=== PATIENT | female | born 1935 | race Caucasian/White ===

== ENCOUNTER 2025-01-11 14:45 | Inpatient (IN) | payer MEDICARE, SELFPAY ==
[2025-01-11 16:05] VITALS: BP 145/87; PULSE 99; RESP 14; TEMP 37; O2SAT 95; BMI 30.7
[2025-01-11 18:00] VITALS: PULSE 98; RESP 16; O2SAT 96
[2025-01-11] MEDS: Magnesium Citrate 300 ML PO (18:14)
--- NOTE | 2025-01-11 20:08 | HP.PCM_ITS ---
HPI - General General Date of Admission: 01/11/25 Date of Service: 01/11/25 Chief Complaint: Here for rehabilitation. HPI Narrative TITI CABRERA, is a 89 F who presents with followin01/05/[address] [facility] with fall, left hip pain. X-ray showed left hip fracture, Ortho ordered MRI left hip confirmed left hip fracture. Walks with cane at baseline, tripped on curb, fell on left side. Morphine given, Zofran given. CT head negative, CT cervical spine negative. 01/05/2025 PT/OT, consult Orthopedics, pain control for left hip fracture. DVT prophylaxis. 01/07/2025 Hyponatremia. 01/07/2025 Dr. Sun performed left hip nailing. 01/08/2025 No acute events overnight. Hyponatremia improving, sodium 125 to 130. 01/08/2025 Mild left hip pain. WBAT, PT/OT, Pain control. Lovenox 30mg sc daily x 14 days DVT prophylaxis. Needs rehab at discharge. 01/09/2025 UTI treated with Keflex. 01/11/2025 Admit to TCU with debility, here for rehabilitation, strengthening, prior to discharge home with . [facility] Medical History (Updated 01/11/25 @ 20:[address] Tarik Quezada MD) Irritable bowel Restless legs High cholesterol Cancer Hypothyroidism Chronic pain Osteoporosis GERD (gastroesophageal reflux disease) Non-smoker Hypertension Migraines Home Medications ?Medication ?Instructions ?Recorded ?Last Taken ?Type acetaminophen 500 mg tablet 1,000 mg PO Q8H PRN PRN fe kelsey or 01/11/25 Unknown History pain aluminum-mag hydroxide-simethicone 30 ml PO Q2H PRN up set stomach 01/11/25 Unknown History 200 mg-200 mg-20 mg/5 mL oral susp ascorbic acid (vitamin C) 500 mg 500 mg PO BID iron ab sorption 01/11/25 Unknown History tablet (C-500) atorvastatin 10 mg tablet 10 mg PO DAILY cholesterol 1 03/13/24 Unknown History balsalazide 750 mg capsule 2,250 mg PO DAILY ulcerativ e 01/11/25 Unknown History colitis cholecalciferol (vitamin D3) 50 50 mcg PO DAILY bone 1 03/13/24 Unknown History mcg (2,000 unit) capsule cyclobenzaprine 10 mg tablet 10 mg PO BID PRN spasms 1 03/13/24 Unknown History enoxaparin 30 mg/0.3 mL 30 mg subcut Q24H clot preve ntion 01/11/25 Unknown History subcutaneous syringe (Lovenox) ferrous sulfate 325 mg (65 mg 325 mg PO DAILY anemia 1 03/13/24 Unknown History iron) tablet (Feosol) hydrocodone-acetaminophen 5-325mg 0.5 - 1 tab PO QHS p ain 01/11/25 Unknown History 5mg-325mg levothyroxine 25 mcg tablet 25 mcg PO DAILY hypothyroi dism 01/11/25 Unknown History lisinopril 20 mg tablet 20 mg PO DAILY BP 01/11/25 U nknown History omeprazole 40 mg capsule,delayed 40 mg PO DAILY acid r eflux 01/11/25 Unknown History release oxybutynin chloride 5 mg tablet 5 mg PO TID PRN bladde r 01/11/25 Unknown History oxycodone 5 mg capsule 5 mg PO Q4H PRN pain 5 Unknown History polyethylene glycol 3350 17 17 g PO DAILY bowels 01/11 Unknown History gram/dose oral powder (Miralax) sennosides 8.6 mg tablet (Senokot) 17.2 mg PO QHS cheryl ls 01/11/25 Unknown History tramadol 50 mg tablet 50 mg PO Q6H PRN pain (scale 01/11/25 Unknown History score4-5) Allergy/AdvReac Type Severity Reaction Status Date / Time Seasonal Allergies: Uncoded Allergy congestion Verified 01/11/25 15:45 Family History (Updated 01/11/25 @ 20:[address] Tarik Quezada MD) Mother Hypertension Maternal Grandmother Uterine cancer Surgical History (Updated 01/11/25 @ 20:[address] Tarik Quezada MD) History of tonsillectomy History of dilation and curettage History of malignant neoplasm of rectum History of back surgery History of appendectomy Social History (Updated 01/11/25 @ 20:[address] Tarik Quezada MD) household members: spouse Smoking Status: Never smoker alcohol intake: never substance use type: does not use ROS Constitutional Constitutional: Denies chills, fever(s) or weight gain ENT HEENT: Denies headache(s), nasal congestion or nasal discharge Cardiovascular Cardiovascular: Denies chest pain or palpitations Respiratory/Chest Respiratory/Chest: Denies cough, excessive phlegm production or shortness of breath with exertion Gastrointestinal Gastrointestinal: Denies abdominal pain, nausea or vomiting Genitourinary Genitourinary: Denies dysuria Musculoskeletal Musculoskeletal: Denies joint pain or joint swelling Integumentary Integumentary: Denies rash or wounds Neurologic Neurologic: Denies focal weakness, numbness or tingling Psychiatric Psychiatric: Denies anxiety, auditory hallucinations, depression, homicidal ideation or suicidal ideation Vital Signs Vital Signs Vital Signs: 01/11/25 16:05 01/11/25 18:00 Temperature 98.6 F Temperature Source Temporal Pulse Rate 99 98 Pulse Rhythm Regular Pulse Strength Normal (2+) Respiratory Rate 14 16 Respiratory Effort Normal Non-Labored Respiratory Depth Normal Respiratory Pattern Normal Blood Pressure 145/87 H Blood Pressure Mean 106 Blood Pressure Source Monitor Blood Pressure Position Semi-Fowlers Blood Pressure Location Right Arm Pulse Ox 95 96 Oxygen Delivery Method Room Air Room Air Weight Weight: 78.744 kg Body Mass Index (BMI) 30.7 Physical Exam Const alert General Appearance: cooperative HEENT normocephalic Eyes PERRL and EOMs intact bilaterally Neck supple, no JVD and no carotid bruits Resp normal respiratory effort, normal air movement and clear to auscultation bilaterally Cardio regular rate and regular rhythm GI normal to inspection, nondistended, normoactive bowel sounds, non-tender and non-distended Extremity normal capillary refill General Extremity: Negative for edema Skin no rashes or lesions noted General Skin Exam: no breakdown Psych affect normal Appearance: appropriate Assessment & Plan Assessment/Plan (1) Debility: (2) Closed left hip fracture: (3) Hyponatremia: (4) Urinary tract infection: (5) Essential (primary) hypertension: (6) Vitamin D deficiency: (7) Hyperlipidemia, unspecified: (8) Ulcerative colitis: (9) Osteoarthritis: (10) Hypothyroidism: (11) GERD (gastroesophageal reflux disease): (12) Overactive bladder: PLAN: Plan 89 year old female with below past medical history hospitalized for left hip fracture, underwent left hip nailing 01/07/[address] Sun, postoperative course complicated by hyponatremia, urinary tract infection, admitted to TCU with debility, here for rehabilitation, strengthening, prior to discharge home with . * Debility - PT/OT. * Pain - Tylenol 1000mg q8 prn, [place] 1/2 to 1 tablet qhs, Tramadol 50mg q6 prn, Oxycodone 5mg to 10mg q4 prn. * Bowel - Miralax 17gm daily, senna/colace 2 tablets bid, Magnesium citrate 300mL daily prn. * Adult immunization - Administer pneumonia vaccine, covid vaccine, flu vaccine as appropriate. * DVT prophylaxis - Lovenox 30mg sc q24 thru 01/23/2025. * Vitamin C deficiency - Vitamin C 500mg bid. * Ulceractive colitis - Balsalazide 2250mg daily. * Vitamin D deficiency - D3 50mcg daily. * Muscle spasm - Flexeril 10mg bid prn thru 01/18/2025. * Iron deficiency anemia - Ferrous sulfate 325mg thru 01/17/2025. * Hemorrhoids - Anusol 25mg pr bid prn. * Hypothyroidism - Levothyroxine 25mcg daily. * Hypertension - Lisinopril 20mg daily. * Indigestion - Mylanta 30ml daily prn. * Skin irritation - Calmoseptine topical bid. * Overactive bladder - Oxybutynin 5mg tid prn. * GERD - Pantoprazole 40mg bid.
[2025-01-11] MEDS: HYDROcodone Bitartrate/Apap 5/325 Tablet PO (21:51)
[2025-01-12 06:07] LABS: Hematocrit 34.9 % (37-47); Hemoglobin 11.5 g/dL (12.0-15.0); Immature Granulocytes Count 0.030 X10^3/uL (0.0-0.0); Mean Corp Hgb Conc 33.0 g/dL (32-36); Mean Corpuscular Volume 94.6 fL (81-99); Mean Platelet Vol. 8.7 fl (6.2-12.0); NRBC Flagged by Analyzer 0 % (0-5); Platelet Count 294 K/mm3 (150-450); RBC Distribution Width CV 13.6 % (11.6-14.6); RBC Distribution Width SD 47.5 fl (35.1-43.9); Red Blood Count 3.69 M/mm3 (4.2-5.4); White Blood Count 6.3 K/mm3 (4.4-11.0)
[2025-01-12 06:39] LABS: Anion Gap 9 (5-15); BUN 17 mg/dL (4-19); BUN/Creat Ratio 27.6 RATIO (10-20); Calcium,Total 9.2 mg/dL (7.6-11.0); Carbon Dioxide 26.2 mmol/L (21.0-32.0); Chloride 104 mmol/L (98-108); Estimated Creatinine Clearance 47.37 ml/min (50-250); Glucose 105 mg/dL (70-99); Potassium 4.3 mmol/L (3.3-5.1)
[2025-01-12] MEDS: Cholecalciferol (VIT D3) 25 MCG TABLET (1,000 UNITS) 50 MCG PO (08:59)
[2025-01-12] MEDS: BALSALAZIDE DISODIUM 750 MG CAPSULE 2250 MG PO (08:59)
[2025-01-12 09:04] VITALS: BP 113/66; PULSE 87; RESP 16; TEMP 37; O2SAT 96
--- NOTE | 2025-01-12 09:49 | MDS.RN ---
MDS Entry Tracker completed, Pain assessed.
--- NOTE | 2025-01-12 10:07 | NURSING ---
Promotions Firm Accounts Manager Note; Activity Asset: Valeriano Acuña is independent in her choice of daily activities. Her family will visit and are bringing in her computer. She has her smartphone she uses to listen to books, talk with family and she watches tv and has magazines in her room. Arianne welcomes the therapy dog and care consultant when avaliable. Staff will remind her of weekly activities and respect her right to say no.
[2025-01-12] MEDS: Tuberculin,Purif.prot.deriv. 50 TU/ML Vial 0.1 ML ID (11:14)
--- NOTE | 2025-01-12 11:24 | PHA.CONS_ITS ---
Documented by User: Hiren Isbell 01/12/25 12:03 TCU RX Drug Regimen Review Subjective/Objective Subjective/Objective Subjective: TCU Admission. 89 year old female hospitalized for left hip fracture, underwent left hip nailing 01/07/[address] Sun, postoperative course complicated by hyponatremia, urinary tract infection, admitted to TCU with debility, here for rehabilitation, strengthening, prior to discharge home with . Objective: Allergies Seasonal Allergies: Uncoded Allergy (Verified 01/11/25 15:45) congestion Current Medications Generic Name Dose Route Start Last Admin Trade Name Freq PRN Reason Stop Dose Admin Acetaminophen 1,000 mg 01/11/25 15:30 Acetaminophen 500 Mg Tablet PO Q8H PRN PRN fever or pain Hydrocodone Bitart/Acetaminophen 0.5 - 1 tablet 01/11/25 22:00 01/11/25 21:51 Hydrocodone Bitartrate/Apap 5/325 Tablet PO 01/14/25 22:01 1 tablet QHS MARIAN Administration Al Hydroxide/Mg Hydroxide 30 ml 01/11/25 15:30 Mag Hydrox/Al Hydrox/Simeth 30 Ml Udc PO Q2H PRN upset stomach Ascorbic Acid 500 mg 01/11/25 22:00 01/12/25 08:59 Ascorbic Acid 500 Mg Tablet PO 500 mg BID MARIAN Administration Atorvastatin Calcium 10 mg 01/12/25 10:00 01/12/25 08:59 Atorvastatin Calcium 10 Mg Tablet PO 10 mg DAILY MARIAN Administration Balsalazide 2,250 mg 01/12/25 10:00 01/12/25 08:59 Balsalazide Disodium 750 Mg Capsule PO 2,250 mg DAILY MARIAN Administration Calamine/Phenol 1 applic 01/11/25 22:00 01/12/25 09:00 Menthol/Lanolin/Calamine/Znox 113 Gm Tube TOPICAL 1 applic BID MARIAN Administration Protocol Cholecalciferol 50 mcg 01/12/25 10:00 01/12/25 08:59 Cholecalciferol (Vit D3) 25 Mcg Tablet (1,000 Units) PO 50 mcg DAILY MARIAN Administration Cyclobenzaprine HCl 10 mg 01/11/25 15:30 Cyclobenzaprine Hcl 10 Mg Tablet PO 01/18/25 15:31 BID PRN SPASMS Enoxaparin Sodium 30 mg 01/12/25 10:00 01/12/25 11:14 Enoxaparin 30 Mg/0.3 Ml Syringe SC 01/23/25 10:01 30 mg Q24 MARIAN Administration Ferrous Sulfate 325 mg 01/12/25 12:00 01/12/25 11:14 Ferrous Sulfate 325 Mg Tablet PO 01/17/25 12:01 325 mg DAILY@1200 REPLACED BY [facility] Administration Hydrocortisone Acetate 25 mg 01/11/25 17:54 Hydrocortisone 25 Mg Suppository RC BID PRN PRN Constipation Levothyroxine Sodium 25 mcg 01/12/25 06:00 01/12/25 05:46 Levothyroxine 25 Mcg Tablet PO 25 mcg DAILY@0600 REPLACED BY [facility] Administration Lisinopril 20 mg 01/12/25 10:00 01/12/25 11:14 Lisinopril 20 Mg Tablet PO 20 mg DAILY REPLACED BY [facility] Administration Protocol Magnesium Citrate 300 ml 01/11/25 17:55 01/11/25 18:14 Magnesium Citrate 300 Ml PO 300 ml X1 PRN Administration Constipation Oxybutynin Chloride 5 mg 01/11/25 15:30 Oxybutynin 5 Mg Tablet PO TID PRN bladder Oxycodone HCl 5 - 10 mg 01/11/25 15:30 01/12/25 09:03 Oxycodone 5 Mg Tablet PO 5 mg Q4H PRN Administration SEE INSTRUCTIONS Pantoprazole Sodium 40 mg 01/11/25 22:00 01/12/25 08:59 Pantoprazole Sodium 40 Mg Tablet PO 40 mg BID REPLACED BY [facility] Administration Polyethylene Glycol 17 gm 01/12/25 10:00 01/12/25 09:00 Polyethylene Glycol 3350 17 Gm Packet PO Not Given DAILY REPLACED BY [facility] Senna/Docusate Sodium 2 tablet 01/11/25 22:00 01/12/25 09:00 Senna/Docusate Sodium 1 Tablet PO Not Given BID REPLACED BY [facility] Sodium Chloride 10 - 40 ml 01/11/25 15:52 0.9% Saline Lock 10 Ml Syringe IV UD PRN SALINE FLUSH Tramadol HCl 50 mg 01/11/25 15:30 Tramadol 50 Mg Tablet PO Q6H PRN PAIN SCORE OF 4 Tuberculin PPD 0.1 ml 01/19/25 10:00 Tuberculin,Purif.Prot.Deriv. 50 Tu/Ml Vial ID 01/19/25 10:01 X1 ONE Problem List Overactive bladder (Acute) GERD (gastroesophageal reflux disease) (Acute) Osteoarthritis (Acute) Ulcerative colitis (Acute) Hyperlipidemia, unspecified (Acute) Vitamin D deficiency (Acute) Hypothyroidism (Acute) Essential (primary) hypertension (Acute) Urinary tract infection (Acute) Hyponatremia (Acute) Closed left hip fracture (Acute) Debility (Acute) Vital Signs Temp Pulse Resp BP Pulse Ox O2 Del Method 98.6 F 87 16 113/66 96 Room Air 01/12/25 09:04 01/12/25 09:04 01/12/25 09:04 01/12/25 09:04 01/12/25 09:04 01/12/25 09:04 Oxygen Delivery Method Room Air Weight: 78.744 kg Body Mass Index (BMI) 30.7 Sodium 139 mmol/L (133-145) 01/12/25 05:21 Potassium 4.3 mmol/L (3.3-5.1) 01/12/25 05:21 Chloride 104 mmol/L (98-108) 01/12/25 05:21 Carbon Dioxide 26.2 mmol/L (21.0-32.0) 01/12/25 05:21 Anion Gap 9 (5-15) 01/12/25 05:21 BUN 17 mg/dL (4-19) 01/12/25 05:21 Creatinine 0.61 mg/dL (0.70-1.20) L 01/12/25 05:21 Est GFR (MDRD) Non-Af 85 (>60) 01/12/25 05:21 BUN/Creatinine Ratio 27.6 RATIO (10-20) H 01/12/25 05:21 Glucose 105 mg/dL (70-99) H 01/12/25 05:21 Assessment/Plan: 1. Pain - Tylenol 1000mg PO Q8H PRN (Resident has not used any prn doses at this time), [place] 1/2 to 1 tablet PO QHS, Tramadol 50mg PO QHS, Oxycodone 5mg to 10mg PO Q4H PRN (2 administrations at this time). Monitor pain scores before/after prn administration for response, PRN pain medication usage, symptoms of pain/resident distress and ability to participate in therapy. Check LFTs if resident develops symptoms of hepatoxicity. Consider monitoring LFTs if patient using >3 gm/day of acetaminophen for prolonged period. Do not exceed 4000 mg in 24 hours. Monitor for constipation, respiratory depression (current RR range: 14-16), falls and sedation/delirium (Be[place]). 2. Bowel - Miralax 17gm PO daily, senna/colace 2 tablets PO BID, Magnesium citrate 300mL PO daily PRN constipation (1 administration at this time). Last document bowel movement: 01/12/25. Monitor for usage of prn medications, abdominal pain, frequency of bowel movements, diarrhea. Recommend holding bowel regimen if resident develops diarrhea. 3. DVT prophylaxis - Lovenox 30mg SC q24 thru 01/23/2025. Monitor for symptoms of VTE (new onset leg pain, swelling, erythema, SOB, chest pain, hypoxia) and bleeding. 4. General wellness - Vitamin C 500mg PO BID, D3 50mcg PO daily, Calmoseptine topical BID. Please monitor for skin irritation/worsening rash, weakness, and muscle cramps 5. Ulceractive colitis - Balsalazide 2250mg PO daily. Please monitor for signs/symptoms of a UC flair, constipation, GI bleeding, and muscle pain. 6. Muscle spasm - Flexeril 10mg PO BID PRN spasms thru 01/18/2025 (Resident has not used any prn doses at this time). Please monitor for drowsiness, dry mouth, dizziness, and changes in vision. 7. Iron deficiency anemia - Ferrous sulfate 325mg PO daily thru 01/17/2025. Please monitor for constipation, changes in stool color and fatigue. 8. Hemorrhoids - Anusol 25mg [place] BID PRN (Resident has not used any prn doses at this time). Please monitor for worsening symptoms and diarrhea. 9. Hypothyroidism - Levothyroxine 25mcg PO daily. Please monitor for edema, changes in appetite, flushing, and weakness. 10. Hypertension - Lisinopril 20mg PO daily. BP range since admission = 145/87- 113/66, HR range since admission 87-99.?BP control appropriate at this time. Monitor blood pressure, heart rate, symptoms of orthostasis, dizziness.? Consider checking orthostatic blood pressure and implementing fall precautions with any indication of orthostatic hypotension. Monitor serum potassium (last K = 4.3 (01/12/25)), renal function (SCr = 0.61), for cough and symptoms of angioedema. 11. Indigestion - Mylanta 30ml PO daily PRN (Resident has not used any prn doses at this time). Please monitor for heartburn/indigestion, PRN medication usages, constipation, and electrolyte disturbances. K: 4.3, Ca: 9.2 (01/12/25). 12. Overactive bladder - Oxybutynin 5mg PO TID PRN (Resident has not used any prn doses at this time). Please monitor for symptoms, PRN medication usage, dizziness, drowsiness, and dry mouth. 13. GERD - Pantoprazole 40mg PO BID. Monitor for symptoms of GERD including heartburn, reflux, nausea after meals. Encourage nonpharmacologic therapies including elevating head of bed at bedtime, smaller meals and avoidance of tr igger foods as appropriate for resident. Monitor for diarrhea (consider possibility of C. diff if develops). Consider serum magnesium level and B12 level with long-term use if indicated. If clinically appropriate, consider dose reduction/weaning of medication due to custodial risks of C. diff and fractures ([place]). Assessment/Plan for indications treated with psychotropic medications: - Resident is not prescribed scheduled or prn psychotropic medications at the time of this drug regimen review. Medical chart and medication regimen reviewed. The following medication irregularities or issues were identified: - No recommendations for resident at this time. Date Date of Note: 01/12/25 Documented by User: Dr. Tarik Quezada MD 01/12/25 12:36 TCU RX Drug Regimen Review Provider Comments Provider responsibility Provider Comments to Recommendations by Pharmacy Agree
--- NOTE | 2025-01-12 16:09 | CASEMGMT ---
Social Work SW met with patient to complete initial assessment. Introduced self and role. Verified/updated contacts. Patient wishes to have code status as DNR-CCA, no intubation. SW notified nursing. SW educated to [facility] insurance with NRD 01/17 and continued stay is not guaranteed with each review. Pt's goal is to return home with . See SW assessment for details and barriers. SW will continue to follow for DC planning. Kala Hernandez DESIGN STUDIO CONSULTANT SPORTS MANAGEMENT INTERNSHIP
[2025-01-12] MEDS: HYDROcodone Bitartrate/Apap 5/325 Tablet PO (21:18)
[2025-01-13 08:10] VITALS: BP 109/64; PULSE 78; RESP 16; TEMP 36.9; O2SAT 97
[2025-01-13] MEDS: BALSALAZIDE DISODIUM 750 MG CAPSULE 2250 MG PO (08:13)
[2025-01-13] MEDS: Cholecalciferol (VIT D3) 25 MCG TABLET (1,000 UNITS) 50 MCG PO (08:14)
[2025-01-13] MEDS: Polyethylene Glycol 3350 17 GM PACKET PO (08:18)
[2025-01-13 16:09] VITALS: BP 114/74; PULSE 90; RESP 16; TEMP 36.8; O2SAT 90
[2025-01-13 21:25] VITALS: PULSE 87; RESP 18; O2SAT 99
[2025-01-13] MEDS: HYDROcodone Bitartrate/Apap 5/325 Tablet PO (21:25)
[2025-01-14 08:15] VITALS: BP 116/70; PULSE 89; RESP 16; TEMP 36.7; O2SAT 96
[2025-01-14] MEDS: Cholecalciferol (VIT D3) 25 MCG TABLET (1,000 UNITS) 50 MCG PO (08:19)
[2025-01-14] MEDS: Polyethylene Glycol 3350 17 GM PACKET PO (08:25)
[2025-01-14] MEDS: HYDROcodone Bitartrate/Apap 5/325 Tablet PO (22:19)
[2025-01-15 08:05] VITALS: BP 121/68; PULSE 80; RESP 17; TEMP 36.8; O2SAT 96
[2025-01-15] MEDS: Cholecalciferol (VIT D3) 25 MCG TABLET (1,000 UNITS) 50 MCG PO (08:08)
[2025-01-15] MEDS: Polyethylene Glycol 3350 17 GM PACKET PO (08:12)
--- NOTE | 2025-01-15 11:30 | NURSING ---
Offered covid vaccine, resident reports she had it in November.
--- NOTE | 2025-01-15 15:49 | CHAPLAIN ---
Type of Pastoral Visit _x__ Initial Visit ___ Follow-up Visit ___ On-call Visit ___ General Patient Visit ___ Spiritual Assessment ___ Family Conference ___ Bereavement ___ Rapid Response ___ Code Blue ___ Other (describe below) Pastoral Care Referral From _x__ Patient ___ Family ___ Nurse ___ Physician ___ Towel Hemmer ___ P 3 Armament/Ordnance Ima Technician ___ Other (describe below) Sacrament/Intervention _x__ Active listening ___ Anointing ___ Moravian ___ Bereavement ___ Communion _x__ exploration ___ _x__ Life review _x__ Prayer ___ Reconciliation ___ Sacrament of Sick _x__ Supportive presence ___ Wedding ___ Other (describe below) Pastoral Comments patient is welcoming and eager for company; pt gives lots of life review; pt is pleased with her care and is motivated to be home before the expected time; pt has a spouse that is concerned for her and he is still actively working at age 88; pt and spouse have been for 67 years and are grateful for a good life; pt has concerns about losing her independence and sees the aging process having an impact on her ; daughter who lives abroad plans to move home this summer and help them but pt is tearful because she doesn't want to be the one being in need; pt speaks of her yazdanism and the good support they give; pt recognizes her blessings; pt is able to share freely her feelings; pt welcomes prayer and expresses gratitude for the visit
[2025-01-15 16:10] VITALS: BP 118/63; PULSE 84; RESP 20; TEMP 36.8; O2SAT 94
[2025-01-16] MEDS: Cholecalciferol (VIT D3) 25 MCG TABLET (1,000 UNITS) 50 MCG PO (09:13)
[2025-01-16] MEDS: Polyethylene Glycol 3350 17 GM PACKET PO (09:30)
[2025-01-16 15:50] VITALS: BMI 29.8
[2025-01-16 16:00] VITALS: BP 114/64; PULSE 94; RESP 17; TEMP 36.8; O2SAT 96
[2025-01-16] MEDS: Senna/Docusate Sodium 1 Tablet 2 TABLET PO (20:42)
[2025-01-17 05:10] VITALS: RESP 16
--- NOTE | 2025-01-17 09:11 | CASEMGMT ---
Social Work IDT met with patient and at bedside, then dtr Ivonne in [facility], participated via conference call for care plan meeting. Discussed patient's progress in PT/OT/SN/RDN. Educated to [facility] insurance with NRD 01/16 and continued stay is not guaranteed with each review. Pt's goal is to return home with . still works full-time and pt would be home alone. Therapy recommend a lift chair at home to assist with the STS because once pt is on her feet, she can be independent with AE. Pt stated they do have a lift chair and have a FWW. will bring in FWW to ensure it fits for pt. SW to coordinate skilled HHC and other DME needs at DC. Dtr asked questions about homegoing needs. SW answered questions and provided resources for private duty TRUCK BODY BUILDER for 'james system' after a week of DC; [place], MOW, medical alert and house cleaning services. OT recommended silver sneakers after therapy has ended. Family appreciative of information. SW will continue to follow for DC planning. Kala Hernandez INSPECTOR FABRIC SHREDDER/GRANULATOR OPERATOR
[2025-01-17] MEDS: Cholecalciferol (VIT D3) 25 MCG TABLET (1,000 UNITS) 50 MCG PO (10:01)
--- NOTE | 2025-01-17 10:44 | MDS.RN ---
Pain assessment for MDS complete.
--- NOTE | 2025-01-17 13:16 | CASEMGMT ---
Social Work BIMS () and PHQ2 (0) interviews completed on this date for MDS assessment. SARA Cherry
[2025-01-17 16:00] VITALS: BP 117/75; PULSE 98; RESP 16; TEMP 37.7
[2025-01-18 06:21] VITALS: PULSE 70; RESP 16
[2025-01-18] MEDS: Cholecalciferol (VIT D3) 25 MCG TABLET (1,000 UNITS) 50 MCG PO (07:38)
[2025-01-18 07:42] VITALS: BP 105/67; PULSE 79; RESP 16; TEMP 36.4; O2SAT 98
[2025-01-18] MEDS: BALSALAZIDE DISODIUM 750 MG CAPSULE 2250 MG PO (12:38)
[2025-01-18 15:01] VITALS: BP 125/82; PULSE 89; RESP 13; TEMP 36.3; O2SAT 97
[2025-01-19 05:52] LABS: Hematocrit 33.8 % (37-47); Hemoglobin 11.1 g/dL (12.0-15.0); Immature Granulocytes Count 0.030 X10^3/uL (0.0-0.0); Mean Corp Hgb Conc 32.8 g/dL (32-36); Mean Corpuscular Volume 94.2 fL (81-99); Mean Platelet Vol. 8.5 fl (6.2-12.0); NRBC Flagged by Analyzer 0 % (0-5); Platelet Count 342 K/mm3 (150-450); RBC Distribution Width CV 13.8 % (11.6-14.6); RBC Distribution Width SD 47.6 fl (35.1-43.9); Red Blood Count 3.59 M/mm3 (4.2-5.4); White Blood Count 6.5 K/mm3 (4.4-11.0)
[2025-01-19 07:27] LABS: Anion Gap 10 (5-15); BUN 14 mg/dL (4-19); BUN/Creat Ratio 21.7 RATIO (10-20); Calcium,Total 8.6 mg/dL (7.6-11.0); Carbon Dioxide 23.2 mmol/L (21.0-32.0); Chloride 105 mmol/L (98-108); Estimated Creatinine Clearance 46.66 ml/min (50-250); Glucose 86 mg/dL (70-99); Potassium 4.4 mmol/L (3.3-5.1)
[2025-01-19 08:26] VITALS: BP 94/76; PULSE 74; RESP 16; TEMP 36.8; O2SAT 97
[2025-01-19] MEDS: BALSALAZIDE DISODIUM 750 MG CAPSULE 2250 MG PO (08:33)
[2025-01-19] MEDS: Senna/Docusate Sodium 1 Tablet 2 TABLET PO ×2 (08:34→20:56)
[2025-01-19] MEDS: Cholecalciferol (VIT D3) 25 MCG TABLET (1,000 UNITS) 50 MCG PO (08:34)
[2025-01-19 10:46] VITALS: BP 97/56; PULSE 82
[2025-01-19] MEDS: Tuberculin,Purif.prot.deriv. 50 TU/ML Vial 0.1 ML ID (10:50)
[2025-01-19 17:51] VITALS: BP 113/66; PULSE 73; RESP 16; TEMP 36.6; O2SAT 97
[2025-01-20 09:13] VITALS: BP 112/58; PULSE 77; RESP 18; TEMP 36.7; O2SAT 97
[2025-01-20] MEDS: Cholecalciferol (VIT D3) 25 MCG TABLET (1,000 UNITS) 50 MCG PO (09:15)
[2025-01-20] MEDS: BALSALAZIDE DISODIUM 750 MG CAPSULE 2250 MG PO (09:16)
[2025-01-20] MEDS: Polyethylene Glycol 3350 17 GM PACKET PO (09:20)
[2025-01-20] MEDS: Senna/Docusate Sodium 1 Tablet 2 TABLET PO ×2 (09:20→20:15)
[2025-01-21 10:00] VITALS: PULSE 80; RESP 17
[2025-01-21 10:45] VITALS: BP 128/64; PULSE 83; RESP 18; TEMP 37.1; O2SAT 99
[2025-01-21] MEDS: Cholecalciferol (VIT D3) 25 MCG TABLET (1,000 UNITS) 50 MCG PO (10:48)
[2025-01-21] MEDS: Polyethylene Glycol 3350 17 GM PACKET PO (10:48)
[2025-01-21] MEDS: Senna/Docusate Sodium 1 Tablet 2 TABLET PO ×2 (10:48→19:48)
[2025-01-21] MEDS: BALSALAZIDE DISODIUM 750 MG CAPSULE 2250 MG PO (10:49)
[2025-01-22] MEDS: Cholecalciferol (VIT D3) 25 MCG TABLET (1,000 UNITS) 50 MCG PO (08:03)
[2025-01-22] MEDS: BALSALAZIDE DISODIUM 750 MG CAPSULE 2250 MG PO (08:04)
[2025-01-22] MEDS: Polyethylene Glycol 3350 17 GM PACKET PO (08:08)
[2025-01-22] MEDS: Senna/Docusate Sodium 1 Tablet 2 TABLET PO ×2 (08:08→21:29)
--- NOTE | 2025-01-22 08:45 | NURSING ---
Spooler Operator Note; MDS for 01/18/2025 Complete
[2025-01-22 16:00] VITALS: BP 118/68; PULSE 78; RESP 16; TEMP 36.9; O2SAT 98
--- NOTE | 2025-01-22 16:18 | CASEMGMT ---
Addendum entered by Kala Hernandez 01/23/25 08:48: Pt chose HHC agencies - [facility]. Referrals sent via [facility]. Referral sent to [facility] for [facility]. Addendum entered by Kala Hernandez 01/22/25 16:38: NOMNC issued to pt. Original Note: Social Work Insurance issued LCD 01/24, [place] 01/25 SW spoke with pt at bedside to inform. NOMNC not received yet, but SW reviewed appeal rights. Pt denied appeal and is excited to DC home. Discussed DC needs. Pt agreeable to skilled HHC. SW provided list of skilled HHC agencies within geographical area, INN with insurance, that include quality and resource data via CarePort guide. Pt to notify SW of preferences. Pt requesting [facility]. SW to coordinate through [facility] to transport. Plan: DC home with 01/25, HHC PT/OT/LEAL, BSC Kala Hernandez DINING SERVICE SUPERVISOR CUTTER APPRENTICE HAND
--- NOTE | 2025-01-22 19:33 | PCM.DC.SUM ---
Providers Date of Admission: 01/11/25 Primary Care Physician: Penelope Fairchild MD Reason For Visit: LEFT HIP FRACTURE Diagnosis Discharge Diagnosis (1) Debility: Status: Acute Code(s): R53.81 - Other malaise (2) Closed left hip fracture: Status: Acute Code(s): S72.002A - Fracture of unspecified part of neck of left femur, initial encounter for closed fracture (3) Hyponatremia: Status: Acute Code(s): E87.1 - Hypo-osmolality and hyponatremia (4) Urinary tract infection: Status: Acute Code(s): N39.0 - Urinary tract infection, site not specified (5) Essential (primary) hypertension: Status: Acute Code(s): I10 - Essential (primary) hypertension (6) Vitamin D deficiency: Status: Acute Code(s): E55.9 - Vitamin D deficiency, unspecified (7) Hyperlipidemia, unspecified: Status: Acute Code(s): E78.5 - Hyperlipidemia, unspecified (8) Ulcerative colitis: Status: Acute Code(s): K51.90 - Ulcerative colitis, unspecified, without complications (9) Osteoarthritis: Status: Acute Code(s): M19.90 - Unspecified osteoarthritis, unspecified site (10) Hypothyroidism: Status: Acute Code(s): E03.9 - Hypothyroidism, unspecified (11) GERD (gastroesophageal reflux disease): Status: Acute Code(s): K21.9 - Gastro-esophageal reflux disease without esophagitis (12) Overactive bladder: Status: Acute Code(s): N32.81 - Overactive bladder Plan 89 year old female with below past medical history hospitalized for left hip fracture, underwent left hip nailing 01/07/[address] Sun, postoperative course complicated by hyponatremia, urinary tract infection, admitted to TCU with debility, here for rehabilitation, strengthening, prior to discharge home with . Debility - PT/OT. Pain - Tylenol 1000mg q8 prn, [place] 1/2 to 1 tablet qhs, Tramadol 50mg q6 prn, Oxycodone 5mg to 10mg q4 prn. Bowel - Miralax 17gm daily, senna/colace 2 tablets bid, Magnesium citrate 300mL daily prn. Adult immunization - Administer pneumonia vaccine, covid vaccine, flu vaccine as appropriate. DVT prophylaxis - Lovenox 30mg sc q24 thru 01/23/2025. Vitamin C deficiency - Vitamin C 500mg bid. Ulceractive colitis - Balsalazide 2250mg daily. Vitamin D deficiency - D3 50mcg daily. Muscle spasm - Flexeril 10mg bid prn thru 01/18/2025. Iron deficiency anemia - Ferrous sulfate 325mg thru 01/17/2025. Hemorrhoids - Anusol 25mg pr bid prn. Hypothyroidism - Levothyroxine 25mcg daily. Hypertension - Lisinopril 20mg daily. Indigestion - Mylanta 30ml daily prn. Skin irritation - Calmoseptine topical bid. Overactive bladder - Oxybutynin 5mg tid prn. GERD - Pantoprazole 40mg bid. Medications at Discharge Home Medications acetaminophen 500 mg tablet 1,000 mg PO Q8H PRN PRN fever or pain 01/11/25 ascorbic acid (vitamin C) 500 mg tablet (C-500) 500 mg PO BID iron absorption 01/11/25 atorvastatin 10 mg tablet 10 mg PO DAILY cholesterol 01/11/25 balsalazide 750 mg capsule 2,250 mg PO DAILY ulcerative colitis 01/11/25 cholecalciferol (vitamin D3) 50 mcg (2,000 unit) capsule 50 mcg PO DAILY bone 01/11/25 levothyroxine 25 mcg tablet 25 mcg PO DAILY hypothyroidism 01/11/25 lisinopril 20 mg tablet 20 mg PO DAILY BP 01/11/25 polyethylene glycol 3350 17 gram/dose oral powder (Miralax) 17 g PO DAILY bowels 01/11/25 cyclobenzaprine 10 mg tablet 10 mg PO BID PRN Muscle Spasm 30 days #60 tabs 01/22/25 oxycodone 5 mg tablet 5 - 10 mg (1 - 2 x 5 mg) PO Q4H PRN SEE INSTRUCTIONS 7 days #42 tabs 01/22/25 pantoprazole 40 mg tablet,delayed release 40 mg PO BID 30 days #60 tabs 01/22/25 sennosides 8.6 mg-docusate sodium 50 mg tablet (Stimulant Laxative Plus) 2 tab PO BID 30 days #120 tabs 01/22/25 Hospital Course Operations - (See below.) Procedures None Summary of Care Provided Minutes Spent on Discharge: 35 Hospital Course: 89 year old female with below past medical history hospitalized for left hip fracture, underwent left hip nailing 01/07/[address] Sun, postoperative course complicated by hyponatremia, urinary tract infection, admitted to TCU with debility, here for rehabilitation, strengthening, prior to discharge home with . Discharge home with 01/25/2025, [facility] PT/OT/LEAL, BSC. BSC: Patient is confined to a single room unable to safely access toilet. Patient is confined to one level of the home environment and there is no toilet on that level. Physical Exam Const alert General Appearance: cooperative HEENT normocephalic Eyes PERRL and EOMs intact bilaterally Neck supple, no JVD and no carotid bruits Resp normal respiratory effort, normal air movement and clear to auscultation bilaterally Cardio regular rate and regular rhythm GI normal to inspection, nondistended, normoactive bowel sounds, non-tender and non-distended Extremity normal capillary refill General Extremity: Negative for edema Skin no rashes or lesions noted General Skin Exam: no breakdown Psych affect normal Appearance: appropriate Weight / BMI Weight Weight: 76.402 kg Body Mass Index (BMI) 29.8 ABG / Lab / Microbiology Data 01/19/25 05:27 01/19/25 05:27 D/C Instructions Discharge Activity: Return to Normal Activity, May Shower and Use Walker Weight Bearing Status: Weight bearing as tolerated Call your doctor if you observe: Fever of 101 or Higher, Inability to urinate, Inability to have a bowel movement, Shortness of breath, Dizziness, Fainting spells, Swelling in the ankles, Chest pain and Uncontrolled pain DC O2, CPAP, BIPAP Needs Home O2 Discharge instructions: No Additional Instructions: Discharge home with 01/25/2025, [facility] PT/OT/LEAL, BSC. BSC: Patient is confined to a single room unable to safely access toilet. Patient is confined to one level of the home environment and there is no toilet on that level. Please Follow Up With: Gabriel Méndez (surgery) When: As scheduled. Meaningful Use Info Meaningful Use Meaningful Use Diagnoses (Choose all that apply): None applicable Discharge Plan Admission Admit Date/Time: 01/11/25 14:45 Primary Reason for Your Visit: Debility. Attending Provider: Tarik Quezada Chi Primary Care Provider: Penelope Fairchild Instructions Additional Instructions / Restrictions: Discharge home with 01/25/2025, [facility] PT/OT/LEAL, BSC. BSC: Patient is confined to a single room unable to safely access toilet. Patient is confined to one level of the home environment and there is no toilet on that level. Discharge Orders/Prescriptions Prescriptions: New cyclobenzaprine 10 mg Tablet 10 mg PO BID PRN (Reason: Muscle Spasm) 30 Days Qty: 60 0RF sennosides-docusate sodium [Stimulant Laxative Plus] 8.6-50 mg Tablet 2 tab PO BID 30 Days Qty: 120 0RF pantoprazole 40 mg Tablet,Delayed Release (Dr/Ec) 40 mg PO BID 30 Days Qty: 60 0RF oxycodone 5 mg Tablet 5 - 10 mg PO Q4H PRN (Reason: SEE INSTRUCTIONS) 7 Days Qty: 42 0RF Continued acetaminophen 500 mg tablet 1,000 mg PO Q8H PRN PRN (Reason: fever or pain) polyethylene glycol 3350 [Miralax] 17 gram/dose powder 17 g PO DAILY lisinopril 20 mg tablet 20 mg PO DAILY levothyroxine 25 mcg tablet 25 mcg PO DAILY cholecalciferol (vitamin D3) 50 mcg (2,000 unit) capsule 50 mcg PO DAILY balsalazide 750 mg capsule 2,250 mg PO DAILY ascorbic acid (vitamin C) [C-500] 500 mg tablet 500 mg PO BID atorvastatin 10 mg tablet 10 mg PO DAILY Discontinued oxybutynin chloride 5 mg tablet 5 mg PO TID PRN (Reason: bladder) omeprazole 40 mg capsule,delayed release(DR/EC) 40 mg PO DAILY hydrocodone-acetaminophen 5-325 mg tablet 0.5 - 1 tab PO QHS tramadol 50 mg tablet 50 mg PO Q6H PRN (Reason: pain (scale score4-5)) sennosides [Senokot] 8.6 mg tablet 17.2 mg PO QHS oxycodone 5 mg capsule 5 mg PO Q4H PRN (Reason: pain) Rx Instructions: give one tab for pain 5-6 give two tabs for pain 7-10 ferrous sulfate [Feosol] 325 mg (65 mg iron) tablet 325 mg PO DAILY enoxaparin [Lovenox] 30 mg/0.3 mL syringe 30 mg subcut Q24H cyclobenzaprine 10 mg tablet 10 mg PO BID PRN (Reason: spasms) alum-mag hydroxide-simeth 200-200-20 mg/5 mL suspension 30 ml PO Q2H PRN (Reason: upset stomach) Referrals / Follow Up: Penelope Fairchild MD [Primary Care Provider, Internal Medicine] Disposition Disposition (needs filled in before D/C Order can be placed): Home Health Service
[2025-01-23 08:10] VITALS: BP 120/75; PULSE 81; RESP 16; TEMP 36.8; O2SAT 96
[2025-01-23] MEDS: Senna/Docusate Sodium 1 Tablet 2 TABLET PO ×2 (08:15→21:29)
[2025-01-23] MEDS: BALSALAZIDE DISODIUM 750 MG CAPSULE 2250 MG PO (08:15)
[2025-01-23] MEDS: Cholecalciferol (VIT D3) 25 MCG TABLET (1,000 UNITS) 50 MCG PO (08:16)
[2025-01-23] MEDS: Polyethylene Glycol 3350 17 GM PACKET PO (08:21)
--- NOTE | 2025-01-23 14:02 | CASEMGMT ---
Social Work A resources representative from [facility] came to [facility], asking to meet w/pt. SW explained will need to check w/pt first. SW reviewed [facility], referrals were sent to [facility] and [facility], both accepted pt. SW asked pt if she has a preference, she does not. Pt agreeable to speak w/the resources representative from [facility], she was going to meet w/pt in her room. TONJA Jmaes
[2025-01-23 14:49] VITALS: PULSE 75; RESP 16; O2SAT 95
--- NOTE | 2025-01-24 08:26 | MDS.RN ---
Information for the MDS was obtained from review of the clinical record, interview of resident, staff, and direct observation of resident?s care.
[2025-01-24 09:47] VITALS: BP 99/73; PULSE 93; RESP 17; TEMP 36.6; O2SAT 98
[2025-01-24] MEDS: Cholecalciferol (VIT D3) 25 MCG TABLET (1,000 UNITS) 50 MCG PO (09:48)
[2025-01-24] MEDS: BALSALAZIDE DISODIUM 750 MG CAPSULE 2250 MG PO (09:48)
[2025-01-24] MEDS: Polyethylene Glycol 3350 17 GM PACKET PO (09:57)
[2025-01-24 10:00] VITALS: PULSE 90; RESP 17; O2SAT 98
--- NOTE | 2025-01-24 13:21 | CASEMGMT ---
BIMS () and PHQ2(1) interviews completed on this date for MDS assessment. SARA Cherry
[2025-01-24 16:00] VITALS: BP 121/73; PULSE 94; RESP 19; TEMP 37.3; O2SAT 96
[2025-01-25 06:10] VITALS: PULSE 72; RESP 16; O2SAT 95
[2025-01-25] MEDS: BALSALAZIDE DISODIUM 750 MG CAPSULE 2250 MG PO (08:34)
[2025-01-25] MEDS: Cholecalciferol (VIT D3) 25 MCG TABLET (1,000 UNITS) 50 MCG PO (08:34)
[2025-01-25 08:36] VITALS: BP 116/69; PULSE 82; RESP 17; TEMP 36.5; O2SAT 96
== END 2025-01-25 11:08 | disposition home health service (06) | DRG 560 ==
PROVIDERS: Admitting Provider Family Medicine Geriatric Medicine; PCP Hospitalist; Referring Provider Family Medicine Geriatric Medicine; Visit Provider Family Medicine Geriatric Medicine
DX: M80.052D Age-related osteoporosis with current pathological fracture, left femur, subsequent encounter for fracture with routine healing (principal); K51.90 Ulcerative colitis, unspecified, without complications; D50.9 Iron deficiency anemia, unspecified; I10 Essential (primary) hypertension; E03.9 Hypothyroidism, unspecified; K21.9 Gastro-esophageal reflux disease without esophagitis; E78.00 Pure hypercholesterolemia, unspecified; M19.90 Unspecified osteoarthritis, unspecified site; W19.XXXD Unspecified fall, subsequent encounter; K64.9 Unspecified hemorrhoids; Z79.890 Hormone replacement therapy; N32.81 Overactive bladder; Z79.899 Other long term (current) drug therapy
CPT/HCPCS: 36415; 80048; 85025; 94667; 97110; 97162; 97166; 97530; 97535; 97802